=== PATIENT | female | born 1970 | race Caucasian/White ===

== ENCOUNTER → 2016-08-05 | Outpatient (CLI) | payer BC ==
--- NOTE | 2016-08-05 08:08 | US ---
EXAMINATION TYPE: US pelvic complete DATE OF EXAM: 08/05/2016 7:22 AM COMPARISON: Prior ultrasound July 22, 2014 CLINICAL HISTORY: R 19.09 PELVIC MASS. Patient states doctor felt uterus was swollen TECHNIQUE: Transabdominal (TA) pelvic ultrasound. Date of LMP: 07/29/2016, EXAM MEASUREMENTS: Uterus: 9.9 x 5.7 x 4.2 cm Endometrial Stripe: 0.8 cm Right Ovary: 2.8 x 1.9 x 1.5 cm Left Ovary: 2.8 x 1.3 x 0.9 cm TECHNOLOGIST IMPRESSION: 1. Uterus: Anteverted, heterogenous with no focal lesions seen 2. Endometrium: wnl 3. Right Ovary: follicles 4. Left Ovary: wnl Spectral, color and waveform doppler imaging shows good arterial and venous flow within the ovaries ; 5. Bilateral Adnexa: wnl 6. Posterior cul-de-sac: no free fluid Cervix- multiple nabothian cysts IMPRESSION: No definitive suspicious intrauterine mass identified. Uterine size is stable. If suspici on for fibroids remains present, MRI can be performed to further assess.
--- NOTE | 2016-08-05 10:34 | MM ---
Reason for exam: screening (asymptomatic). Last mammogram was performed 2 years ago. History: Benign US RT VAD breast biopsy of the right breast, July 15, 2013. Physical Findings: A clinical breast exam by your physician is recommended on an annual basis and results should be correlated with mammographic findings. MG Screening Mammo w CAD Bilateral CC and MLO view(s) were taken. Prior study comparison: July 22, 2014, bilateral MG screening mammo w CAD. July 12, 2013, CAD bilateral diagnostic mammogram. The breast tissue is extremely dense which could obscure a lesion on mammography. Finding: There are typically benign dystrophic, round, diffuse/scattered calcifications in both breasts, greater in the left breast. There is no discrete abnormality. ASSESSMENT: Benign, BI-RAD 2 RECOMMENDATION: Routine screening mammogram of both breasts in 1 year.
== END | disposition home or self-care (01) ==
LOC: RADUSWWP 06:58
PROVIDERS: ATTEND Obstetrics & Gynecology
DX: Z12.31 Encounter for screening mammogram for malignant neoplasm of breast (principal); R19.09 Other intra-abdominal and pelvic swelling, mass and lump
CPT/HCPCS: 76856; G0202

== ENCOUNTER → 2017-12-05 | Outpatient (CLI) | payer BC ==
--- NOTE | 2017-12-06 14:30 | MM ---
Reason for exam: screening (asymptomatic). Last mammogram was performed 1 year and 4 months ago. History: Benign US RT VAD breast biopsy of the right breast, July 15, 2013. Physical Findings: A clinical breast exam by your physician is recommended on an annual basis and results should be correlated with mammographic findings. MG Screening Mammo w CAD Bilateral CC and MLO view(s) were taken. Prior study comparison: August 05, 2016, bilateral MG screening mammo w CAD. July 22, 2014, bilateral MG screening mammo w CAD. The breast tissue is heterogeneously dense. This may lower the sensitivity of mammography. Finding: There are typically benign diffuse/scattered calcifications in both breasts. No suspicious abnormality. No significant changes in finding since August 05, 2016 and July 22, 2014. ASSESSMENT: Incomplete: need additional imaging evaluation, BI-RAD 0 RECOMMENDATION: Ultrasound of the right breast. (pain) [facility] will attempt to contact patient to return for ultrasound.
== END | disposition home or self-care (01) ==
LOC: RADMAMWWP 08:08
PROVIDERS: ATTEND Obstetrics & Gynecology
DX: Z12.31 Encounter for screening mammogram for malignant neoplasm of breast (principal)
CPT/HCPCS: 77067

== ENCOUNTER → 2017-12-12 | Outpatient (CLI) | payer BC ==
--- NOTE | 2017-12-12 09:08 | USB ---
Reason for exam: additional evaluation requested from abnormal screening. History: Benign US RT VAD breast biopsy of the right breast, July 15, 2013. Physical Findings: Nurse Summary: 2cm nodule moves (nurse james). US Breast Workup RT Right complete breast ultrasound includes all four quadrants, the retroareolar region and axilla. Finding demonstrates a 0.2 x 0.2 x 0.2cm calcification too small to characterize at 1 o'clock, a 0.4 x 0.3 x 0.5cm mixed lesion at 3 o'clock, clip from prior biopsy, a 0.7 x 0.4 x 0.7cm solid lesion at 5 o'clock and a 0.5 x 0.5 x 0.5cm mixed lesion at 9 o'clock. These results were verbally communicated with the patient and result sheet given to the patient on 12/12/17. ASSESSMENT: Probably benign, BI-RAD 3 RECOMMENDATION: Ultrasound of the right breast in 6 months.
== END ==
LOC: RADUSWWP 08:01
PROVIDERS: ATTEND Obstetrics & Gynecology
DX: R92.8 Other abnormal and inconclusive findings on diagnostic imaging of breast (principal); N64.4 Mastodynia

== ENCOUNTER 2018-03-30 17:48 | Emergency (ER) | payer BC ==
[2018-03-30] MEDS ORDERED: HYDROmorphone 0.5 MG/0.5 ML SYRINGE IVP STA (18:17)
[2018-03-30] MEDS ORDERED: PANTOPRAZOLE 40 MG/10 ML VIAL IVP STA (18:17)
[2018-03-30] MEDS ORDERED: KETOROLAC 30 MG/ML 1 ML VIAL IVP STA (18:17)
[2018-03-30] MEDS ORDERED: SODIUM CHLORIDE 0.9% 1,000 ML IV STA (18:17)
[2018-03-30] MEDS ORDERED: ONDANSETRON 4 MG/2 ML VIAL IVP STA (18:17)
--- NOTE | 2018-03-30 18:46 | ED ---
Abdominal Pain HPI - General Chief Complaint: Abdominal Pain Stated Complaint: abdominal pain, cramping Time Seen by Provider: 03/30/18 18:02 Source: patient, RN notes reviewed, old records reviewed Mode of arrival: ambulatory Limitations: no limitations - History of Present Illness Initial Comments: Patient is a 47-year-old female presents for his room today with chief complaint of nausea, feeling ill for the past few weeks. She reports she's had increased pain in the epigastric region towards the right upper quadrant for the past 3 days. She reports intermittent chills. She denies any changes in urination. She does report that she's had some episodes of diarrhea. She denies any chest pain, shortness of breath. She reports that she's R PCP today and they did laboratory but she does not have the results this time. She states that he completed x-rays which were negative for any acute process. She was started on Prilosec by her PCP today. She states that she has not had any improvement of her symptoms after taking a GI cocktail at the doctor's office today as well. She states that the pain seems to be sharp. - Related Data Home Medications Medication Instructions Recorded Confirmed Acetaminophen Tab [Tylenol Tab] 650 mg PO Q4H PRN 03/30/18 03/30/18 Benzoyl Peroxide [Benzac AC Wash] 1 applic TOPICAL DAILY 03/30/18 03/30/18 Cholecalciferol [Vitamin D3] 5,000 unit PO DAILY 03/30/18 03/30/18 Ibuprofen [Motrin Ib] 800 mg PO Q6H PRN 03/30/18 03/30/18 Inulin/Chromium Picolinate [Fiber 1 tab PO DAILY 03/30/18 03/30/18 Gummies Chew] Levothyroxine Sodium [Synthroid] 112 mcg PO DAILY 03/30/18 03/30/18 Pnv,Calcium 72/Iron/Folic Acid 1 tab PO DAILY 03/30/18 03/30/18 [ Plus Tablet] Triamterene/Hydrochlorothiazid 1 tab PO DAILY 03/30/18 03/30/18 [Maxzide 37.5-25] Previous Rx's Medication Instructions Recorded Sucralfate [Carafate] 1 gm PO ACHS #20 tablet 03/30/18 Allergies Allergy/AdvReac Type Severity Reaction Status Date / Time No Known Allergies Allergy Verified 03/30/18 18:42 Review of Systems ROS Statement: Those systems with pertinent positive or pertinent negative responses have been documented in the HPI. ROS Other: All systems not noted in ROS Statement are negative. Past Medical History Past Medical History: Hypertension, Thyroid Disorder History of Any Multi-Drug Resistant Organisms: None Reported Past Surgical History: No Surgical Hx Reported Past Psychological History: No Psychological Hx Reported Smoking Status: Never smoker Past Alcohol Use History: None Reported Past Drug Use History: None Reported General Exam - General Exam Comments Initial Comments: 47-year-old male. Alert and oriented. No acute distress. Limitations: no limitations General appearance: alert, in no apparent distress Head exam: Present: atraumatic, normocephalic, normal inspection Eye exam: Present: normal appearance, PERRL, EOMI. Absent: scleral icterus, conjunctival injection, periorbital swelling ENT exam: Present: normal exam, mucous membranes moist Neck exam: Present: normal inspection. Absent: tenderness, meningismus, lymphadenopathy Respiratory exam: Present: normal lung sounds bilaterally. Absent: respiratory distress, wheezes, rales, rhonchi, stridor Cardiovascular Exam: Present: regular rate, normal rhythm, normal heart sounds. Absent: systolic murmur, diastolic murmur, rubs, gallop, clicks GI/Abdominal exam: Present: soft, tenderness (Minimal epigastric right upper quadrant tenderness.), normal bowel sounds. Absent: distended, guarding, rebound, rigid Extremities exam: Present: normal inspection, full ROM, normal capillary refill. Absent: tenderness, pedal edema, joint swelling, calf tenderness Back exam: Present: normal inspection Neurological exam: Present: alert, oriented X3, CN II-XII intact Psychiatric exam: Present: normal affect, normal mood Skin exam: Present: warm, dry, intact, normal color. Absent: rash Course Vital Signs 03/30/18 17:57 Temperature 98.2 F Pulse Rate 61 Respiratory 20 Rate Blood Pressure 115/73 O2 Sat by Pulse 100 Oximetry Medical Decision Making - Medical Decision Making Residual female presents returns today with chief complaint of upper abdominal pain for the past 3 days. Complains of nausea and vomiting. She had tomato soup prior to arrival which seemed to make her pain worse. She was diagnosed gastritis and possible peptic ulcer. Patient states that she's had one dose of the Prilosec. At this time patient's labwork was reviewed and unremarkable. We did do a right upper quadrant ultrasound which is negative for any acute process. I discussed the possibility of gastritis gastric ulcer. Discussed possibility of needing may possibly need a HIDA scan. Patient agrees without fever and abnormal lab or she is not one of them do a computed tomography scan at this time. I did discuss she has any fever or worsening pain or symptoms that she should return. Patient will be started on Carafate as well. Discussed in some medications. Discussed that she follow up with GI specialist for possible HIDA scan and upper GI. - Lab Data Result diagrams: 03/30/18 18:21 03/30/18 18:21 Lab Results 03/30/18 03/30/18 03/30/18 Range/Units 18:21 18:21 18:21 WBC 10.5 (3.8-10.6) k/uL RBC 4.64 (3.80-5.40) m/uL Hgb 14.9 (11.4-16.0) gm/dL Hct 43.0 (34.0-46.0) % MCV 92.6 (80.0-100.0) fL MCH 32.1 (25.0-35.0) pg MCHC 34.7 (31.0-37.0) g/dL RDW 12.4 (11.5-15.5) % Plt Count 246 (150-450) k/uL Neutrophils % 73 % Lymphocytes % 18 % Monocytes % 5 % Eosinophils % 2 % Basophils % 0 % Neutrophils # 7.7 (1.3-7.7) k/uL Lymphocytes # 1.9 (1.0-4.8) k/uL Monocytes # 0.6 (0-1.0) k/uL Eosinophils # 0.2 (0-0.7) k/uL Basophils # 0.0 (0-0.2) k/uL PT 9.7 (9.0-12.0) sec INR 1.0 (<1.2) APTT 24.5 (22.0-30.0) sec Sodium 139 (137-145) mmol/L Potassium 4.1 (3.5-5.1) mmol/L Chloride 107 (98-107) mmol/L Carbon Dioxide 22 (22-30) mmol/L Anion Gap 10 mmol/L BUN 14 (7-17) mg/dL Creatinine 0.64 (0.52-1.04) mg/dL Est GFR (CKD-EPI)AfAm >90 (>60 ml/min/1.73 sqM) Est GFR (CKD-EPI)NonAf >90 (>60 ml/min/1.73 sqM) Glucose 106 H (74-99) mg/dL Calcium 9.1 (8.4-10.2) mg/dL Total Bilirubin 0.8 (0.2-1.3) mg/dL AST 29 (14-36) U/L ALT 23 (9-52) U/L Alkaline Phosphatase 78 (38-126) U/L Total Protein 7.1 (6.3-8.2) g/dL Albumin 4.1 (3.5-5.0) g/dL Amylase 71 (30-110) U/L Lipase 123 (23-300) U/L - Radiology Data Radiology results: report reviewed No gallstones and dilated ducts. Negative exam. Disposition Clinical Impression: Gastritis Disposition: HOME SELF-CARE Condition: Good Instructions: Gastritis (ED) Additional Instructions: Advised to follow-up with primary care provider and GI specialist. Return to emergency department if any alarming signs or symptoms occur. Prescriptions: Sucralfate [Carafate] 1 gm PO ACHS #20 tablet Is patient prescribed a controlled substance at d/c from ED?: No Referrals: Keyur Mccallum MD [Primary Care Provider] - 1-2 days Daquan Villalba MD [STAFF PHYSICIAN] - 1-2 days Time of Disposition: 20:32
[2018-03-30 18:55] LABS: Basophils % (A) 0 %; Eosinophils # (A) 0.2 k/uL (0-0.7); Eosinophils % (A) 2 %; HGB 14.9 gm/dL (11.4-16.0); Lymphocytes # (A) 1.9 k/uL (1.0-4.8); Lymphocytes % (A) 18 %; MCH 32.1 pg (25.0-35.0); MCHC 34.7 g/dL (31.0-37.0); MCV 92.6 fL (80.0-100.0); Mean Platelet Volume 7.3; Monocytes # (A) 0.6 k/uL (0-1.0); Monocytes % (A) 5 %; Neutrophils # (A) 7.7 k/uL (1.3-7.7); Neutrophils % (A) 73 %; Platelet Count 246 k/uL (150-450); RBC 4.64 m/uL (3.80-5.40); RDW 12.4 % (11.5-15.5); WBC 10.5 k/uL (3.8-10.6)
[2018-03-30 19:04] LABS: ALT 23 U/L (9-52); AST 29 U/L (14-36); Albumin 4.1 g/dL (3.5-5.0); Alkaline Phosphatase 78 U/L (38-126); Amylase 71 U/L (30-110); Anion Gap 10 mmol/L; Blood Urea Nitrogen 14 mg/dL (7-17); Calcium 9.1 mg/dL (8.4-10.2); Carbon Dioxide 22 mmol/L (22-30); Chloride 107 mmol/L (98-107); Glucose 106 mg/dL (74-99); Lipase 123 U/L (23-300); Potassium 4.1 mmol/L (3.5-5.1); Sodium 139 mmol/L (137-145); Total Bilirubin 0.8 mg/dL (0.2-1.3); Total Protein 7.1 g/dL (6.3-8.2)
[2018-03-30 19:05] LABS: Partial Thromboplastin Time 24.5 sec (22.0-30.0); Prothrombin Time 9.7 sec (9.0-12.0)
[2018-03-30] MEDS ORDERED: SODIUM CHLORIDE 0.9% 1,000 ML IV SCH (19:45)
--- NOTE | 2018-03-30 19:58 | US ---
EXAMINATION TYPE: US gallbladder DATE OF EXAM: 03/30/2018 COMPARISON: NONE CLINICAL HISTORY: Pain. abd pain x 3 days, nausea EXAM MEASUREMENTS: Liver Length: 16.0 cm Gallbladder Wall: 0.2 cm CBD: 0.4 cm Right Kidney: 9.8 x 4.2 x 4.5 cm overlying bowel gas limits exam Pancreas: limited views appear wnl Liver: wnl Gallbladder: wnl Evidence for sonographic Esposito's sign: no CBD: wnl Right Kidney: wnl IMPRESSION: No gallstones or dilated ducts. Negative exam.
[2018-03-30 20:44] LABS: Appearance,Urine Cloudy (Clear); Bilirubin,Urine Negative (Negative); Blood,Urine Negative (Negative); Color,Urine Yellow; Glucose,Urine (UA) Negative (Negative); Ketones,Urine 1+ (Negative); Leukocyte Esterase,Urine Negative (Negative); Mucus,Urine Rare /hpf; Nitrite,Urine Negative (Negative); Protein,Urine Negative (Negative); RBC,Urine 1 /hpf (0-5); Specific Gravity,Urine 1.017 (1.001-1.035); Urobilinogen,Urine <2.0 mg/dL (<2.0); WBC,Urine 1 /hpf (0-5)
[2018-03-30 21:12] VITALS: BP 125/70; PULSE 62; RESP 16; TEMP 97.9
== END 2018-03-30 21:14 | disposition home or self-care (01) ==
LOC: EC 17:48
DX: K29.70 Gastritis, unspecified, without bleeding (principal); I10 Essential (primary) hypertension; E07.9 Disorder of thyroid, unspecified; Z79.4 Long term (current) use of insulin; Z79.899 Other long term (current) drug therapy
CPT/HCPCS: 36415; 80053; 82150; 83690; 85025; 85610; 85730; 81001; 76705; 99285; 96374; 96375 ×3; 96361; J2405; J1885; C9113; J1170

== ENCOUNTER → 2019-04-30 | Outpatient (CLI) | payer BC ==
--- NOTE | 2019-05-01 10:23 | MM ---
Reason for exam: screening (asymptomatic). Last mammogram was performed 1 year and 5 months ago. History: Benign US RT VAD breast biopsy of the right breast, July 15, 2013. Physical Findings: A clinical breast exam by your physician is recommended on an annual basis and results should be correlated with mammographic findings. MG Screening Mammo w CAD Bilateral CC and MLO view(s) were taken. Prior study comparison: December 05, 2017, bilateral MG screening mammo w CAD. August 05, 2016, bilateral MG screening mammo w CAD. The breast tissue is extremely dense which could obscure a lesion on mammography. Benign appearing bilateral calcifications. No suspicious abnormality. Right biopsy marker noted. No significant changes when compared with prior studies. ASSESSMENT: Benign, BI-RAD 2 RECOMMENDATION: Routine screening mammogram of both breasts in 1 year. Manage on a clinical basis with regard to chronic right breast pain x 5 years at prior biopsy site.
== END | disposition home or self-care (01) ==
LOC: RADMAMWWP 08:54
PROVIDERS: ATTEND Obstetrics & Gynecology
DX: Z12.31 Encounter for screening mammogram for malignant neoplasm of breast (principal)
CPT/HCPCS: 77067

== ENCOUNTER → 2020-10-01 | Outpatient (CLI) | payer BC ==
--- NOTE | 2020-10-05 09:55 | MM ---
Reason for exam: screening (asymptomatic). Last mammogram was performed 1 year and 5 months ago. History: Benign US RT VAD breast biopsy of the right breast, July 15, 2013. Physical Findings: A clinical breast exam by your physician is recommended on an annual basis and results should be correlated with mammographic findings. MG Screening Mammo w CAD Bilateral CC and MLO view(s) were taken. Prior study comparison: April 30, 2019, bilateral MG screening mammo w CAD. December 05, 2017, bilateral MG screening mammo w CAD. The breast tissue is extremely dense which could obscure a lesion on mammography. Complex breast tissue with diffuse punctate calcifications bilaterally. No significant changes when compared with prior studies. ASSESSMENT: Benign, BI-RAD 2 RECOMMENDATION: Routine screening mammogram of both breasts in 1 year. Patient should continue monthly self breast exams. A negative report should not preclude additional follow up of suspicious palpable abnormalities.
== END | disposition home or self-care (01) ==
LOC: RADMAMWWP 15:20
PROVIDERS: ATTEND Obstetrics & Gynecology
DX: Z12.31 Encounter for screening mammogram for malignant neoplasm of breast (principal)
CPT/HCPCS: 77067

== ENCOUNTER → 2020-12-29 | Outpatient (CLI) | payer BC ==
--- NOTE | 2020-12-29 17:33 | US ---
EXAMINATION TYPE: US thyroid st tissue head/neck DATE OF EXAM: 12/29/2020 COMPARISON: NONE CLINICAL HISTORY: E03.9 HYPOTHYROIDISM. Pt states h/o nodules visualized on outside facility GLAND SIZE: Right Lobe: 4.3 x 1.4 x 1.5 cm Overall Parenchyma: heterogenous Left Lobe: 4.5 x 1.3 x 1.4 cm Overall Parenchyma: heterogeneous Isthmus Thickness: 0.4 cm Bilateral neck scanned, no evidence of lymphadenopathy. Bilateral thyroid appeared grossly heterogene ous, no definite nodules visualized. IMPRESSION: Grossly heterogeneous thyroid parenchyma without discrete nodules. Consider thyroiditis. There is inc reased color vascular flow, right greater than left.
== END | disposition home or self-care (01) ==
LOC: RADUSWWP 14:34
PROVIDERS: ATTEND Family Medicine
DX: E03.9 Hypothyroidism, unspecified (principal)
CPT/HCPCS: 76536

== ENCOUNTER → 2022-02-15 | Outpatient (CLI) | payer BC ==
--- NOTE | 2022-02-16 19:22 | MM ---
Reason for Exam: Screening (asymptomatic). Last mammogram was performed 1 year(s) and 4 month(s) ago. Patient History: Menarche at age 13. First Full-Term at age 22. Premenopausal. Patient has history of breast feeding. 07/15/2013, Benign Core Biopsy on the right side. Last menstrual period: 01/18/2022 Risk Values: Mavis 5 year model risk: 1.0%. NCI Lifetime model risk: 9.4%. Prior Study Comparison: 08/05/2016 Bilateral Screening Mammogram, [facility]. 12/05/2017 Bilateral Screening Mammogram, [facility]. 04/30/2019 Bilateral Screening Mammogram, [facility]. 10/01/2020 Bilateral Screening Mammogram, [facility]. Tissue Density: The breast tissue is heterogeneously dense. This may lower the sensitivity of mammography. Findings: Analyzed By CAD. Possible area of distortion on 3-D images central superior left MLO view. Possible correlate in her left cc view. Diffuse lateral round and punctate calcifications. Benign fat necrosis calcification on the right. Unchanged nodularity right lower axillary tail. Microclip medial posterior right breast from prior biopsy and chronic nodularity here. Overall Assessment: Incomplete: need additional imaging evaluation, BI-RAD 0 Management: Special View Mammogram of the left breast. To include spot 3-D CC, spot 3-D MLO, and 3-D LM views. Ultrasound if any persisting abnormality. [facility] will attempt to contact patient to return for supplemental views and ultrasound if indicated. Electronically signed and approved by: Keira Gonzalez M.D. Radiologist
== END | disposition home or self-care (01) ==
LOC: RADMAMWWP 07:22
PROVIDERS: ATTEND Obstetrics & Gynecology
DX: Z12.31 Encounter for screening mammogram for malignant neoplasm of breast (principal)
CPT/HCPCS: 77063; 77067

== ENCOUNTER → 2022-03-02 | Day surgery (SDC) | payer BC ==
--- NOTE | 2022-03-15 14:31 | USB ---
Risk Values: Mavis 5 year model risk: 1.0%. NCI Lifetime model risk: 9.4%. Pathology Description: Location: 10 o'clock, upper inner quadrant. Marker Left Behind. Needle Type: Celero Cores: 4 Gauge: 12 The procedure of ultrasound guided core biopsy was explained to the patient. Benefits, alternatives, and risks were discussed. An informed consent was then obtained. The patient was placed in supine positioning for imaging and for the procedure. The overlying skin was prepped and draped in usual sterile fashion. Lidocaine buffered with bicarbonate was used as anesthetic into the skin and subcutaneous tissue up to area of concern in the left 10 O'clock breast. A amena was made with surgical scalpel. Under ultrasound guidance, a 12-gauge vacuum assisted biopsy gun device was used to obtain 4 core samples. Following this, a biopsy clip was left in lesion. The patient tolerated the procedure well without any immediate complication. The patient was kept in the radiology department for short stay after the procedure and then discharged home in stable condition. Postprocedure mammogram: The patient was transferred to mammography for physician ordered post procedure mammogram for clip placement verification. Impression: Successful, uncomplicated ultrasound guided core biopsy of area of concern in the left 10 O'clock breast, full pathology results to follow. Pathology Results: Result: Benign, Fibrocystic change. 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 See note. A smooth muscle myosin heavy chain stain is currently pending in order to further exclude invasive carcinoma, and an addendum report will follow with results. Tissue Density: Left: The breast tissue is heterogeneously dense. This may lower the sensitivity of mammography. Overall Assessment: Benign Assessment: MG diagnostic mammo LT wo CAD. - Left: Benign, BI-RAD 2. Management: Diagnostic Breast Ultrasound of the left breast in 6 months. Electronically signed and approved by: Ky Ochoa M.D. Radiologis
== END ==
LOC: RADUSWWP 10:00
PROVIDERS: ATTEND Surgery
DX: N60.12 Diffuse cystic mastopathy of left breast (principal); N60.82 Other benign mammary dysplasias of left breast; N64.89 Other specified disorders of breast; R92.8 Other abnormal and inconclusive findings on diagnostic imaging of breast
CPT/HCPCS: 88305; 88342; 77065; 19083; A4648

== ENCOUNTER → 2023-02-16 | Outpatient (CLI) | payer BC ==
--- NOTE | 2023-02-17 10:07 | MM ---
Reason for Exam: Screening (asymptomatic). Last screening mammogram was performed 12 month(s) ago. Patient History: Menarche at age 13. First Full-Term at age 22. Premenopausal. Patient has history of breast feeding. 03/02/2022, Benign US biopsy breast VAD LT on the left side. 07/15/2013, Benign Core Biopsy on the right side. Risk Values: Mavis 5 year model risk: 1.4%. NCI Lifetime model risk: 11.7%. Prior Study Comparison: 02/22/2022 Left MG 3D work up w/cad LT, [facility]. 03/02/2022 Left MG diagnostic mammo LT wo CAD., [facility]. 08/22/2022 Left MG 3D diag mammo w/cad LT, [facility]. Tissue Density: The breast tissue is extremely dense which could obscure a lesion on mammography. Findings: Analyzed By CAD. Pattern appears symmetrical and stable. No significant interval change is evident. There are multiple scattered punctate calcifications diffusely through the bilateral breast. A core marker is within the left breast. A benign coarse calcifications within the right breast. No suspicious groups of microcalcifications, spiculated or lobular masses, architectural distortion or other secondary signs of malignancy are mammographically apparent. Overall Assessment: Benign, BI-RAD 2 Management: Screening Mammogram of both breasts in 1 year. A negative mammogram report should not preclude additional follow up of suspicious palpable abnormalities. Patient should continue monthly self breast exam. A clinical breast exam by your physician is recommended on an annual basis and results should be correlated with mammographic findings. Electronically signed and approved by: Shan Grajeda D.O. Radiologis
== END | disposition home or self-care (01) ==
LOC: RADMAMWWP 11:30
PROVIDERS: ATTEND Surgery
DX: Z12.31 Encounter for screening mammogram for malignant neoplasm of breast (principal)
CPT/HCPCS: 77063; 77067

== ENCOUNTER → 2023-05-01 | Outpatient (CLI) | payer BC ==
--- NOTE | 2023-05-01 09:48 | US ---
EXAMINATION TYPE: US pelvis complete transvag DATE OF EXAM: 05/01/2023 COMPARISON: NONE CLINICAL INDICATION: Female, 52 years old with history of R10.2 PELVIC PAIN; Recent back MRI showed l eft sided pelvic lesion, no symptoms, TECHNIQUE: TA/TV. Transabdominal sonographic images of the pelvis were acquired. Transvaginal sono graphic images were medically necessary to better assess the following anatomy: uterus and ovaries Date of LMP: last week EXAM MEASUREMENTS: Uterus: 10.8 x 6.8 x 5.6 cm Endometrial Stripe: 1.0 cm Right Ovary: not seen Left Ovary: not seen 1. Uterus: Anteverted 5.1 x 4.6 x 3.6cm possible left fundal fibroid, difficult to appreciate with TV approach, multiple cysts seen within cervix 2. Endometrium: wnl 3. Right Ovary: not seen due to bowel gas 4. Left Ovary: not seen due to bowel gas 5. Bilateral Adnexa: wnl 6. Posterior cul-de-sac: wnl IMPRESSION: 1. No priors were available to compare to to correlate with MRI findings. 2. Endometrium thickened for a postmenopausal patient. Correlate with menopausal status. Further anant luation of the endometrium is recommended if the patient is postmenopausal. 3. Nonvisualization the ovaries, due to bowel gas. 4. Fibroid uterus.
== END | disposition home or self-care (01) ==
LOC: RADUSWWP 07:41
PROVIDERS: ATTEND Family Medicine
DX: N83.8 Other noninflammatory disorders of ovary, fallopian tube and broad ligament (principal); D25.9 Leiomyoma of uterus, unspecified; R10.2 Pelvic and perineal pain
CPT/HCPCS: 76830; 76856

== ENCOUNTER → 2024-06-18 | Outpatient (CLI) | payer BC ==
--- NOTE | 2024-06-18 15:17 | MM ---
Reason for Exam: Screening (asymptomatic). Last mammogram was performed 1 year(s) and 4 month(s) ago. Patient History: Menarche at age 13. First Full-Term at age 22. Premenopausal. Patient has history of breast feeding. 03/02/2022, Benign US biopsy breast VAD LT on the left side. 07/15/2013, Benign Core Biopsy on the right side. Risk Values: Mavis 5 year model risk: 1.5%. NCI Lifetime model risk: 11.3%. Prior Study Comparison: 03/02/2022 Left MG diagnostic mammo LT wo CAD., [facility]. 08/22/2022 Left MG 3D diag mammo w/cad LT, [facility]. 02/16/2023 Bilateral MG 3D screening mammo w/cad, [facility]. Tissue Density: The breasts are heterogeneously dense, which may obscure small masses. Findings: Analyzed By CAD. There is no suspicious group of microcalcifications or new suspicious mass in either breast. Overall Assessment: Benign, BI-RAD 2 Management: Screening Mammogram of both breasts in 1 year. . Patient should continue monthly self-breast exams. A clinical breast exam by your physician is recommended on an annual basis. This exam should not preclude additional follow-up of suspicious palpable abnormalities. Note on Mavis scores and lifetime risk: 1. A Mavis score greater than 3% is considered moderate risk. If this is the case, consider specialist referral to assess eligibility for a risk reducing agent. 2. If overall lifetime risk for the development of breast cancer is 20% or higher, the patient may qualify for future screening with alternating mammogram and breast MRI. [facility], , 06/18/2024 3:14 PM. Electronically signed and approved by: Ky Ochoa M.D. Radiologis
== END | disposition home or self-care (01) ==
LOC: RADMAMWWP 12:05
PROVIDERS: ATTEND Obstetrics & Gynecology
DX: Z12.31 Encounter for screening mammogram for malignant neoplasm of breast (principal); R92.333 Mammographic heterogeneous density, bilateral breasts
CPT/HCPCS: 77063; 77067